=== PATIENT | male | born 1955 | race Caucasian/White ===

== ENCOUNTER → 2021-10-11 | Outpatient (CLI) | payer MEDICARE | END | disposition home or self-care (01) | LOC: RAH 14:08 | PROVIDERS: ATTEND Urology | DX: R31.29 Other microscopic hematuria (principal); K44.9 Diaphragmatic hernia without obstruction or gangrene; I25.10 Atherosclerotic heart disease of native coronary artery without angina pectoris; M47.815 Spondylosis without myelopathy or radiculopathy, thoracolumbar region | CPT/HCPCS: 74176 ==

== ENCOUNTER → 2024-12-23 | Outpatient (CLI) | payer MEDICARE ==
--- NOTE | 2024-12-23 11:13 | HMCIMG ---
ULTRASOUND RENAL COMPLETE INDICATION: Microscopic hematuria TECHNIQUE: Routine ultrasound of the kidneys and urinary bladder with grayscale and color Doppler imaging was performed in real-time, and subsequently made available for review. COMPARISON: No prior studies available for comparison. FINDINGS: The right kidney measures 10.0 x 5.0 x 6.0 cm. No abnormal mass demonstrated. No evidence for hydronephrosis or shadowing stone. The left kidney measures 11.0 x 6.0 x 5.0 cm. No abnormal mass demonstrated. Mild left hydronephrosis without shadowing stone. Urinary bladder appears normal. Prevoid volume = 250 mL and postvoid = 30 mL. IMPRESSION: Mild left hydronephrosis. Mild post void residual.
== END | disposition home or self-care (01) ==
LOC: RAH 10:40
PROVIDERS: ATTEND Urology
DX: N13.30 Unspecified hydronephrosis (principal); R31.29 Other microscopic hematuria
CPT/HCPCS: 76770

== ENCOUNTER → 2025-02-05 | Outpatient (CLI) | payer MEDICARE ==
[~2025-02-05] MED LIST: furoSEMIDE 40MG VIAL ONE
--- NOTE | 2025-02-05 17:55 | HMCIMG ---
NM RENOGRAM W/ LASIX REASON: Unspecified Hydronephrosis. COMPARISON: None TECHNIQUE: Renal scan was performed with 7.5 mCi of technetium MAG3 through intravenous route. Patient was given 33 mg of Lasix through intravenous route. FINDINGS: Differential uptake of left kidney is 55.5% and right kidney is 44.5%. The renal clearance T half for left kidney is 12.2 minutes and the left kidney is 10.2 minutes. IMPRESSION: No obstruction is seen.
== END | disposition home or self-care (01) ==
LOC: RAH 13:13
PROVIDERS: ATTEND Urology
DX: N13.30 Unspecified hydronephrosis (principal)
CPT/HCPCS: 78708; J1938; A9562